=== PATIENT | female | born 1990 | race Caucasian/White ===

== ENCOUNTER 2022-07-02 13:32 | Emergency (ER) | payer OTHER, SELFPAY ==
[2022-07-02 13:40] VITALS: BP 120/67; PULSE 81; RESP 14; TEMP 36.5; O2SAT 100
--- NOTE | 2022-07-02 13:46 | ED.EAR ---
HPI - Ear Problem General Chief complaint: Ear Stated complaint: ear drainage and pain Time Seen by Provider: 07/02/22 13:46 Source: patient Mode of arrival: ambulatory Limitations: no limitations History of Present Illness HPI Narrative: 32 y/o female presented for c/o skin changes behind both ears, for 2 days. Today she pressed on the bottom of right ear and expressed clear fluid. Also reports scabbed area above the right ear that was bleeding today. Reports these sites are tender. Denies tinnitus, headache, sinus congestion, fever, or lesions any where else on body. Related Data Home Medications Medication Instructions Recorded Confirmed clonazepam 1 mg tablet 1 mg PO TID 07/02/22 07/02/22 norgestimate-ethinyl estradiol 1 tablet PO DAILY 07/02/22 07/02/22 0.18 mg/0.215mg/0.25mg-35 mcg(28)tablet (Tri-Sprintec (28)) Allergies Allergy/AdvReac Type Severity Reaction Status Date / Time No Known Allergies Allergy Verified 07/02/22 13:48 Review of Systems Review of Systems: CONSTITUTIONAL: Denies body aches, fever, chills, or sweats. EYES: Denies visual changes, redness, or discharge. ENT: Denies rhinorrhea, congestion CARDIOVASCULAR: Denies chest pain, palpitations, or edema. RESPIRATORY: Denies cough or dyspnea. SKIN: bilateral ear lesions MUSCULOSKELETAL: Denies back pain, joint pain, or myalgia. NEUROLOGIC: Denies headache, numbness, tingling, or weakness. PMFSH Comments At time of signature, I have reviewed and agree with nursing past medical, surgical, social and family history unless otherwise noted. Please see nursing chart for further information. There is no relevant family history pertinent to the presenting complaint Exam Narrative: GENERAL: Well-appearing EYES: conjunctivae clear, and EOMI. ENT: No external ear redness or swelling. TMs normal bilaterally. Mucous membranes moist. Oropharynx without edema, erythema or lesions. NECK: Supple. No lymphadenopathy SKIN: Warm, dry. Skin behind bilateral ears appears excoriated at center of mild erythema and mild swelling, no active drainage. Right orthodoxy with approx 1cm diameter excoriated/scabbed area no active drainage. Pt rubbing the sites frequently. NEURO: Alert and oriented x3. Course Course Emergency Course: Patient is aware of diagnosis, understands and agrees to treatment plan. Anticipatory guidance given. Patient agrees to follow-up as directed and is aware of reasons to seek care at the emergency department. Portions of this record may have been created with voice recognition software Level of Care: Express Care Visit Vital Signs Vital signs: Vital Signs Temperature 97.7 F 07/02/22 13:40 Pulse Rate 81 07/02/22 13:40 Respiratory Rate 14 07/02/22 13:40 Blood Pressure 120/67 07/02/22 13:40 Pulse Oximetry 100 07/02/22 13:40 Oxygen Delivery Room Air 07/02/22 13:40 Temperature 97.7 F 07/02/22 13:49 Pulse Rate 81 07/02/22 13:49 Respiratory Rate 14 07/02/22 13:49 Blood Pressure 120/67 07/02/22 13:49 Pulse Oximetry 100 07/02/22 13:49 Oxygen Delivery Room Air 07/02/22 13:49 Reviewed Medical Decision Making MDM Narrative Medical decision making narrative: Advised supportive measures and signs/symptoms to go to the ER. Will send rx for abscess/cellulitis. Advised to stop touching the sites. Pt is appropriate for outpt treatment and f/u. Differential Diagnosis Differential Diagnosis: abscess, cellulitis, dermatitis, urticaria, eczema, otitis externa, perichondritis Vital Signs Vital Signs: Vital Signs Temperature 97.7 F 07/02/22 13:40 Pulse Rate 81 07/02/22 13:40 Respiratory Rate 14 07/02/22 13:40 Blood Pressure 120/67 07/02/22 13:40 Pulse Oximetry 100 07/02/22 13:40 Oxygen Delivery Room Air 07/02/22 13:40 Temperature 97.7 F 07/02/22 13:49 Pulse Rate 81 07/02/22 13:49 Respiratory Rate 14 07/02/22 13:49 Blood Pressure 120/67 07/02/22 13:49 P
[2022-07-02 13:49] VITALS: BP 120/67; PULSE 81; RESP 14; TEMP 36.5; O2SAT 100
== END 2022-07-02 14:00 | disposition home or self-care (01) ==
PROVIDERS: Emergency Provider Nurse Practitioner Family; PCP Physician Assistant
DX: L30.9 Dermatitis, unspecified (principal); F41.9 Anxiety disorder, unspecified
CPT/HCPCS: 99203; G0463

== ENCOUNTER 2023-12-30 15:58 | Emergency (ER) | payer OTHER, SELFPAY ==
[2023-12-30 16:02] VITALS: BP 118/84; PULSE 126; RESP 18; TEMP 37.4; O2SAT 100
[2023-12-30] MEDS: cefTRIAXone 500 MG VIAL IM (17:20)
[2023-12-30] MEDS: AZITHROMYCIN 250 MG TABLET 1000 MG PO (17:20)
[2023-12-30] MEDS: LIDOCAINE HCL 1% LOCAL INJ 2 ML AMPUL 2.1 ML XX (17:21)
--- NOTE | 2023-12-30 17:37 | ED.ABDPAIN ---
HPI - Abdominal Pain General Chief Complaint: Abdominal Pain Stated Complaint: sob/sharp stomach pain History of Present Illness HPI narrative: pt is a 33 y/o female, presents to with one week hx of suprapubic pressure that worsened over the past two days, now with painful urinating, flank pain and subjective fever last HS. She feels she is losing weight as well, specifically over the past year and attributes this to stress of going through a divorce. she denies vaginal discharge but notes she has had a new sexual partner. she has no dyspareunia or postcoital bleeding. she is taking OCPs but just started a new control pill yesterday. She does not believe she is . She is not seeing her PCP. She denies any other associated symptoms or modifying factors. Related Data Allergies Allergy/AdvReac Type Severity Reaction Status Date / Time No Known Allergies Allergy Verified 07/02/22 13:48 Review of Systems Gastrointestinal: Comments: refer to HPI Genitourinary: Comments: refer to HPI Exam Const: General: cooperative and no acute distress Nutritional Appearance: thin Limitations: no limitations HENMT: Head: normal to inspection Ears: hearing grossly normal bilaterally, external ears normal and TM's normal bilaterally Mouth: Yes Normal oral and palatal mucosa present Throat: posterior oropharynx normal Eyes: General: appearance normal, both eyes and all related structures Conjunctivae: conjunctivae normal Sclera: sclerae normal Cornea: corneas normal EOM: EOMs intact bilaterally Other: no exophthalmos noted Neck: Neck: normal visual inspection, full ROM, no lymphadenopathy and no meningeal signs Lymphatic: no lymphadenopathy noted Resp: Effort & Inspection: normal respiratory effort and able to speak in complete sentences Auscultation: clear to auscultation bilaterally Cardio: Rate: tachycardic (rate is 106 at PMI) Rhythm: regular rhythm Heart sounds: S1 normal heart sound present and S2 normal heart sound present GI: GI Palp: Yes abdominal tenderness (suprapubic TTP noted, no palpable mass or hernia, no peritoneal findings) Back/Spine/Pelvis: Back: no CVA tenderness Skin: General skin exam: normal color and no rashes or lesions noted Neuro: General: oriented to person, oriented to place, oriented to time and patient oriented x3 Cranial nerves: Yes CN's II-XII intact bilaterally and Yes Bilaterally intact EOM present Cognition (Neuro): normal cognition Speech: normal speech Gait exam (Neuro): Normal gait present Extrem: General: normal to inspection Course Course Emergency Course: pt is advised of limitations of diagnostic capability here at and she is advised she may be better served by transferring to the ED for complete work up. She declines. She does agree to urinalysis here, will send for GCT, treat empirically for STI as she has only trace leuk on urine dip here. She is given Rocephin and Zithromax here, Flagyl is not available for admin here at the 2 gm dosing. Plan to therefore, discharge home with Doxycycline and Flagyl however, she is advised she must eat with each dose, avoid etoH and she must FU with PCP as she may require work up for hyperthyroidism/weight loss. she is also advised to proceed to the ER if her symptoms worsen in any way. She is agreeable with plan. She is not to have intercourse until her symptoms resolve and her cultures are received so that partners may be treated if indicated. Level of Care: Express Care Visit ([id number]) Vital Signs Vital signs: Vital Signs Temperature 37.4 C 12/30/23 16:02 Pulse Rate 126 H 12/30/23 16:02 Respiratory Rate 18 12/30/23 16:02 Blood Pressure 118/84 12/30/23 16:02 Pulse Oximetry 100 12/30/23 16:02 Oxygen Delivery Room Air 12/30/23 16:02 Temperature 37.4 C 12/30/23 16:02 Pulse Rate 126 H 12/30/23 16:02 Respiratory Rate 18 12/30/23 16:02 Blood Pressure 118/84 12/30/23 16:02 Pulse Oximet
[2023-12-30 22:05] LABS: Trichomonas Vag PCR NOT DETECTED (NOT DETECTE)
[2023-12-30 22:30] LABS: Chlamydia trachomatis NOT DETECTED (NOT DETECTE); Neisseria gonorrhoeae PCR DETECTED (NOT DETECTE)
== END 2023-12-30 17:53 | disposition home or self-care (01) ==
PROVIDERS: Emergency Provider Nurse Practitioner Family; PCP Emergency Medicine
DX: A54.9 Gonococcal infection, unspecified (principal)
CPT/HCPCS: 81003; 81025; 87086; 87491; 87591; 87661; 96372; 99214; A9270; G0463; J0696